=== PATIENT | female | born 1960 | race Caucasian/White ===

== ENCOUNTER 2017-06-12 18:03 | Inpatient (IN) | payer BC ==
[2017-06-12] MEDS ORDERED: LEVOFLOXACIN 750 MG/D5W RTU 750 MG/150 ML RTUPB IV ONE (19:34)
--- NOTE | 2017-06-12 19:34 | ER Document Report ---
ED Respiratory Problem - General Chief Complaint: Shortness Of Breath Stated Complaint: DIFFICUILTY BREATHING Time Seen by Provider: 06/12/17 19:15 Notes: Patient is a 56-year-old female who is referred to the emergency department by her primary care. She states she initially saw them on Thursday for shortness of breath and productive cough. She states she was diagnosed with pneumonia and started on prednisone, Levaquin, albuterol. Patient states that she was not having any improvement in the symptoms at home and was evaluated on Thursday and today and referred to the emergency department today. Patient denies any fevers, chills, nausea, vomiting, abdominal pain. Denies any chest pain. She admits to shortness of breath with improvement with DuoNeb's. Otherwise, she admits to past medical history significant for an AR in July 2016, hyperlipidemia. TRAVEL OUTSIDE OF THE [place] IN LAST 30 DAYS: No - Related Data Allergies/Adverse Reactions: ceftriaxone sodium [From Rocephin] Allergy (Intermediate, Verified 07/31/14 08: 45) welts, itching Home Medications: Current Home Medications Aspirin [Lo-Dose Aspirin EC] 81 mg pe PO DAILY 06/13/17 [History] Atorvastatin Calcium [Lipitor 40 mg Tablet] 40 mg PO QHS 06/13/17 [History] Bupropion HCl [Wellbutrin Sr 150 mg Tablet] 150 mg PO QHS 06/13/17 [History] Clopidogrel Bisulfate [Plavix 75 mg Tablet] 75 mg PO DAILY 06/13/17 [History] Lisinopril [Prinivil 2.5 mg Tablet] 2.5 mg PO DAILY 06/13/17 [History] Metoprolol Succinate 25 mg PO DAILY 06/13/17 [History] Past Medical History - Social History Smoking Status: Current Every Day Smoker Chew tobacco use (# tins/day): No Frequency of alcohol use: None Drug Abuse: None Family History: Reviewed & Not Pertinent - Past Medical History Cardiac Medical History: Denies: Hx Coronary Artery Disease, Hx Heart Attack, Hx Hypertension Pulmonary Medical History: Reports: Hx Asthma, Hx COPD, Hx Pneumonia Denies: Hx Bronchitis Neurological Medical History: Denies: Hx Cerebrovascular Accident, Hx Seizures Musculoskeltal Medical History: Reports Hx Arthritis - RA Past Surgical History: Reports: Hx Hysterectomy - Immunizations Hx Diphtheria, Pertussis, Tetanus Vaccination: Yes Physical Exam - Vital signs Vitals: Temp Pulse Resp BP Pulse Ox 98.4 F 82 18 139/82 H 89 L 06/12/17 18:31 06/12/17 18:31 06/12/17 18:31 06/12/17 18:31 06/12/17 18:31 Course - Re-evaluation Re-evalutation: 06/13/17 20:00 Patient is a 56-year-old female who is hemodynamically stable, no acute distress and afebrile. Concern at this time the patient is failing outpatient treatment for COPD exacerbation versus pneumonia. IV access established, patient has already received IV Solu-Medrol. Will administer IV Levaquin. 06/13/17 21:30 Initial workup does not reveal any evidence of pneumonia on chest x-ray. White blood cell count elevated either related to underlying pneumonia or prednisone taper that she was initiated on. Lactic at 2.5. Has received antibiotics for pneumonia as well as IV fluids. Discussion with admitting hospitalist Dr. Patel recommend CTA and BNP. 06/13/17 22:15 CTA of the chest is negative for any PE or underlying pneumonia. BNP at 1500. Patient still desaturating and tachypneic when ambulating to the bathroom with assistance. Patient will be admitted for COPD exacerbation under Dr. Patel. Patient agrees with plan. - Vital Signs Vital signs: Temp Pulse Resp BP Pulse Ox 97.7 F 93 18 146/72 H 97 06/13/17 02:00 06/13/17 02:48 06/13/17 02:48 06/13/17 02:00 06/13/17 02:48 - Laboratory Result Diagrams: 06/12/17 20:09 06/12/17 20:09 Laboratory results interpreted by me: 06/12/17 06/12/17 06/12/17 20:09 20:09 20:09 WBC 23.2 H RDW 18.8 H Plt Count 478 H Seg Neuts % (Manual) 92 H Lymphocytes % (Manual) 6 L Monocytes % (Manual) 2 L Abs Neuts (Manual) 21.3 H VBG pCO2 34.8 L Sodium 133.3 L Carbon Dioxide 21 L BUN 21 H Glucose 142 H Lactic Acid NT-Pro-B Natriuret Pep 06/12/17 06/12/17 06/12/17 20:09 20:09 22:46 WBC RDW Plt Count Seg Neuts % (Manual) Lymphocytes % (Manual) Monocytes % (Manual) Abs Neuts (Manual) VBG pCO2 Sodium Carbon Dioxide BUN Glucose Lactic Acid 2.6 H 3.0 H NT-Pro-B Natriuret Pep 1590 H - Diagnostic Test Radiology reviewed: Image reviewed, Reports reviewed - EKG Interpretation by Me EKG shows normal: Sinus rhythm Rate: Normal Rhythm: NSR When compared to previous EKG there are: Previous EKG unavailable Discharge - Discharge Clinical Impression: COPD exacerbation Condition: Stable Disposition: ADMITTED INPATIENT Admitting Provider: [facility] Unit Admitted: Telemetry
--- NOTE | 2017-06-12 19:59 | RADIOLOGY REPORT (SQ) ---
EXAM DESCRIPTION: CHEST PA/LAT COMPLETED DATE/TIME: 06/12/2017 7:53 pm REASON FOR STUDY: pneumonia, sob COMPARISON: None. EXAM PARAMETERS: NUMBER OF VIEWS: two views TECHNIQUE: Digital Frontal and Lateral radiographic views of the chest acquired. RADIATION DOSE: NA LIMITATIONS: none FINDINGS: LUNGS AND PLEURA: No opacities, masses or pneumothorax. No pleural effusion. MEDIASTINUM AND HILAR STRUCTURES: No masses or contour abnormalities. HEART AND VASCULAR STRUCTURES: Heart normal size. No evidence for failure. BONES: No acute findings. HARDWARE: None in the chest. OTHER: No other significant finding. IMPRESSION: NO SIGNIFICANT RADIOGRAPHIC FINDING IN THE CHEST. TECHNICAL DOCUMENTATION: JOB ID: [id number] All Rights Reserved
[2017-06-12 20:38] LABS: VENOUS BLOOD BASE EXCESS -2.2 mmol/L; VENOUS BLOOD HCO3 21.7 mmol/L (20-32); VENOUS BLOOD PCO2 34.8 mmHg (35-63); VENOUS BLOOD PH 7.41 (7.30-7.42)
[2017-06-12 20:41] LABS: APPEARANCE,URINE CLEAR; BILIRUBIN,URINE NEGATIVE (NEGATIVE); GLUCOSE, URINE NEGATIVE (NEGATIVE); KETONES,URINE NEGATIVE (NEGATIVE); LEUKOCYTE ESTERASE,URINE NEGATIVE (NEGATIVE); NITRITE,URINE NEGATIVE (NEGATIVE); PROTEIN,URINE NEGATIVE (NEGATIVE); URINE SPECIFIC GRAVITY 1.011; UROBILINOGEN,URINE NEGATIVE mg/dL (<2.0)
[2017-06-12 20:42] LABS: HEMATOCRIT 42.9 % (36.0-47.0); HEMOGLOBIN 14.4 g/dL (12.0-15.5); HGB HCT DIFFERENCE 0.3; MEAN CORPUSCULAR HEMOGLOBIN 28.8 pg (27.0-33.4); MEAN CORPUSCULAR HGB CONC 33.5 g/dL (32.0-36.0); MEAN CORPUSCULAR VOLUME 86 fl (80-97); RED CELL DISTRIBUTION WIDTH 18.8 % (11.5-14.0); WHITE BLOOD COUNT 23.2 10^3/uL (4.0-10.5)
[2017-06-12 20:58] LABS: ALANINE AMINOTRANSFERASE 24 U/L (9-52); ALBUMIN 4.1 g/dL (3.5-5.0); ALKALINE PHOSPHATASE 68 U/L (38-126); ANION GAP 12 (5-19); ASPARTATE AMINO TRANSFERASE 26 U/L (14-36); BILIRUBIN,DIRECT 0.4 mg/dL (0.0-0.4); BILIRUBIN,TOTAL 0.8 mg/dL (0.2-1.3); BLOOD UREA NITROGEN 21 mg/dL (7-20); CALCIUM 9.1 mg/dL (8.4-10.2); CARBON DIOXIDE 21 mmol/L (22-30); CHLORIDE 100 mmol/L (98-107); CREATININE RESULT 0.74 mg/dL (0.52-1.25); GLUCOSE 142 mg/dL (75-110); LIPASE 69.2 U/L (23-300); MAGNESIUM 2.1 mg/dL (1.6-2.3); POTASSIUM 4.8 mmol/L (3.6-5.0); SODIUM 133.3 mmol/L (137-145); TOTAL PROTEIN 7.1 g/dL (6.3-8.2)
[2017-06-12 21:05] LABS: BASOPHILS % (MANUAL) 0 % (0-2); EOSINOPHILS % (MANUAL) 0 % (0-6); LYMPHOCYTES % (MANUAL) 6 % (13-45); TOTAL CELLS COUNTED 100
[2017-06-12] MEDS ORDERED: NORMAL SALINE 1000 ML 2,000 ML IV PRN (21:08)
[2017-06-12 21:09] LABS: ANISOCYTOSIS 1+; OVALOCYTES SLIGHT; POIKILOCYTOSIS SLIGHT; TOXIC GRANULATION SLIGHT
[2017-06-12] MEDS ORDERED: IPRATROPIUM/ALBUTEROL 0.5-2.5 MG/3 ML AMPUL NEB ONE ×2 (21:28→21:33)
--- NOTE | 2017-06-12 22:57 | RADIOLOGY REPORT (SQ) ---
EXAM DESCRIPTION: CTA CHEST COMPLETED DATE/TIME: 06/12/2017 10:43 pm REASON FOR STUDY: shortness of breath COMPARISON: None. TECHNIQUE: CT scan of the chest performed using helical scanning technique with dynamic intravenous contrast injection. Images reviewed with lung, soft tissue and bone windows. Reconstructed coronal and sagittal MPR images reviewed. Additional 3 dimensional post-processing performed to develop Maximal Intensity Projection images (MN P). All images stored on PACS. All CT scanners at this facility use dose modulation, iterative reconstruction, and/or weight based d osing when appropriate to reduce radiation dose to as low as reasonably achievable (ALARA). [facility]: Dose Right [facility]: CareDose [facility]: Dose Right [facility]: Teradose 4D [facility]: [employer] CONTRAST TYPE AND DOSE: contrast/concentration: Isovue 370.00 mg/ml; Total Contrast Delivered: 69.0 ml; Total Saline Delivered: 109.0 ml Contrast bolus optimized for the pulmonary arteries. Not diagnostic for the aorta. RENAL FUNCTION: GFR > 60. RADIATION DOSE: Up-to-date CT equipment and radiation dose reduction techniques were employed. CTDIv ol: 13.2 - 26.4 mGy. DLP: 990 mGy-cm. . LIMITATIONS: None. FINDINGS: LUNGS AND PLEURA: No masses, infiltrates, pneumothorax. No pleural effusions, calcificati ons. AORTA AND GREAT VESSELS: No aneurysm. Contrast bolus not optimized for the aorta. HEART: No pericardial effusion. No significant coronary artery calcifications. PULMONARY ARTERIES: No emboli visualized in the main pulmonary arteries or the segmental branches. HILAR AND MEDIASTINAL STRUCTURES: No identified masses or abnormal nodes. HARDWARE: None in the chest. UPPER ABDOMEN: No significant findings. Limited exam. THYROID AND OTHER SOFT TISSUES: No masses. No adenopathy. BONES: No acute or significant finding. 3D MIPS: Confirm above findings. OTHER: No other significant finding. IMPRESSION: NORMAL CTA OF THE CHEST. NO PULMONARY EMBOLI. COMMENT: Quality ID # [id number]: Final reports with documentation of one or more dose reduction techniques (e.g., Automated exposure control, adjustment of the mA and/or kV according to patient size, use of iterative reconstruction technique) TECHNICAL DOCUMENTATION: JOB ID: [id number]- All Rights Reserved
[2017-06-12] MEDS ORDERED: FUROSEMIDE INJ/PF 40 MG/4 ML SDV IV ONE (23:34)
[2017-06-13] MEDS ORDERED: ACETAMINOPHEN 325 MG TABLET PO PRN (00:04)
[2017-06-13] MEDS ORDERED: NICOTINE 7 MG/24 HR PATCH.TD24 TD ONE (00:07)
--- NOTE | 2017-06-13 00:13 | EKG REPORT ---
SEVERITY:- ABNORMAL ECG - SINUS RHYTHM NONSPECIFIC INTRAVENTRICULAR CONDUCTION DELAY INFERIOR INFARCT, OLD CONSIDER ANTERIOR INFARCT : Confirmed by: Rosemary Leggett 13-Jun-2017 00:12:39
[2017-06-13] MEDS: FAMOTIDINE 20 MG TABLET PO SCH ×2 (01:00→22:30)
[2017-06-13] MEDS: IPRATROPIUM/ALBUTEROL 0.5-2.5 MG/3 ML AMPUL NEB PRN ×2 (01:02→02:48)
[2017-06-13] MEDS ORDERED: FLUTICASONE NASAL SPRAY 50 MCG/SPRY 120 SPRAY/16 GM ONE (03:18)
[2017-06-13] MEDS ORDERED: CHLORPHENIRAMINE MALEATE 4 MG TABLET ONE (03:18)
[2017-06-13] MEDS ORDERED: DILTIAZEM HCL 60 MG TABLET PO ONE (03:30)
[2017-06-13] MEDS: HEPARIN SOD (PORCINE) 5,000 UNIT/ML 1 ML SYRINGE SUBCUT SCH ×3 (05:34→22:29)
--- NOTE | 2017-06-13 06:17 | PDOC H&P ---
History of Present Illness Admission Date/PCP: 06/13/17 00:04 Patient complains of: Shortness of breath and cough History of Present Illness: URIAH CALVERT is a 56 year old female with past medical history of rheumatoid arthritis, COPD, seasonal allergies and tobacco dependence. Patient had been in her usual state of health until approximately 48 hours prior to presentation with exceptional shortness of breath associated with cough, runny nose and subjective fever. She denies sore throat, chest pain palpitations nausea or vomiting. She is recently diagnosed with a flare of COPD and prescribed prednisone. In the emergency room she has an unremarkable workup with exception to tachypnea and leukocytosis. She is referred to the hospitalist for evaluation. Past Medical History Cardiac Medical History: Denies: Coronary Artery Disease, Myocardial Infarction, Hypertension Pulmonary Medical History: Reports: Asthma, Chronic Obstructive Pulmonary Disease (COPD), Pneumonia Denies: Bronchitis Neurological Medical History: Denies: Seizures Musculoskeltal Medical History: Reports: Arthritis - RA Psychiatric Medical History: Reports: Tobacco Dependency Denies: Depression Hematology: Denies: Anemia Past Surgical History Past Surgical History: Reports: Hysterectomy Social History Information Source: Patient Smoking Status: Current Every Day Smoker Cigarettes Packs Per Day: 0.5 Number of Years Smokin Last Time Smoked: 06/12/2017 Frequency of Alcohol Use: None Hx Recreational Drug Use: No - denies Drugs: None Hx Prescription Drug Abuse: No - Advance Directive Resuscitation Status: Full Code Family History Family History: COPD Parental Family History Reviewed: Yes Children Family History Reviewed: Yes Sibling(s) Family History Reviewed.: Yes Medication/Allergy Home Medications: Cetirizine HCl [Zyrtec 10 mg Tablet] 10 mg PO DAILY 07/28/14 Estrogens,Conjugated [Premarin 1.25 mg Tablet] 1.25 mg PO DAILY 07/28/14 Methotrexate Sodium [Methotrexate] 2.5 mg PO ASDIR 07/28/14 Montelukast Sodium [Singulair 10 mg Tablet] 10 mg PO DAILY 07/28/14 Aspirin [Lo-Dose Aspirin EC] 81 mg pe PO DAILY 06/13/17 Atorvastatin Calcium [Lipitor 40 mg Tablet] 40 mg PO QHS 06/13/17 Bupropion HCl [Wellbutrin Sr 150 mg Tablet] 150 mg PO QHS 06/13/17 Clopidogrel Bisulfate [Plavix 75 mg Tablet] 75 mg PO DAILY 06/13/17 Lisinopril [Prinivil 2.5 mg Tablet] 2.5 mg PO DAILY 06/13/17 Metoprolol Succinate 25 mg PO DAILY 06/13/17 Allergies/Adverse Reactions: ceftriaxone sodium [From Rocephin] Allergy (Intermediate, Verified 07/31/14 08: 45) welts, itching Review of Systems Constitutional: PRESENT: chills, fatigue, fever(s) Eyes: ABSENT: visual disturbances Ears: ABSENT: hearing changes Nose, Mouth, and Throat: PRESENT: other - Rhinorrhea Physical Exam Vital Signs: Temp Pulse Resp BP Pulse Ox 97.7 F 93 18 146/72 H 97 06/13/17 02:00 06/13/17 02:48 06/13/17 02:48 06/13/17 02:00 06/13/17 02:48 Intake & Output 06/11/17 06/12/17 06/13/17 11:59 11:59 11:59 Weight 85.9 kg General appearance: PRESENT: cooperative, mild distress Head exam: PRESENT: atraumatic, normocephalic Eye exam: PRESENT: conjunctiva pink, EOMI, PERRLA. ABSENT: scleral icterus Ear exam: PRESENT: normal external ear exam Mouth exam: PRESENT: moist, tongue midline Neck exam: ABSENT: carotid bruit, JVD, lymphadenopathy, thyromegaly Respiratory exam: PRESENT: accessory muscle use, crackles, prolonged expiratory phas, rales, symmetrical, tachypnea. ABSENT: chest wall tenderness, rhonchi, stridor Cardiovascular exam: PRESENT: RRR. ABSENT: diastolic murmur, rubs, systolic murmur Pulses: PRESENT: normal dorsalis pedis pul Vascular exam: PRESENT: normal capillary refill GI/Abdominal exam: PRESENT: normal bowel sounds, soft. ABSENT: distended, guarding, mass, organolmegaly, rebound, tenderness Rectal exam: PRESENT: deferred Extremities exam: PRESENT: full ROM. ABSENT: calf tenderness, clubbing, pedal edema Neurological exam: PRESENT: alert, awake, oriented to person, oriented to place , oriented to time, oriented to situation, CN II-XII grossly intact. ABSENT: motor sensory deficit Psychiatric exam: PRESENT: appropriate affect, normal mood. ABSENT: homicidal ideation, suicidal ideation Skin exam: PRESENT: dry, intact, warm. ABSENT: cyanosis, rash Results Impressions: Chest X-Ray 06/12/17 19:32 IMPRESSION: NO SIGNIFICANT RADIOGRAPHIC FINDING IN THE CHEST. Chest/Abdomen CTA 06/12/17 21:56 IMPRESSION: NORMAL CTA OF THE CHEST. NO PULMONARY EMBOLI. Assessment & Plan - Diagnosis (1) COPD exacerbation Is this a current diagnosis for this admission?: Yes Plan: Observation on a monitored bed with supplemental oxygen, empiric antibiotics, flutter valve, albuterol and Atrovent. (2) Allergic sinusitis Is this a current diagnosis for this admission?: Yes Plan: Symptomatic management with chlorpheniramine and Flonase (3) Bronchitis Is this a current diagnosis for this admission?: Yes Plan: Albuterol and Atrovent, flutter valve, empiric antibiotics (4) Rheumatoid arthritis Is this a current diagnosis for this admission?: Yes Plan: Continue methotrexate and prednisone. - Time Time Spent: 30 to 50 Minutes
[2017-06-13] MEDS: IPRATROPIUM/ALBUTEROL 0.5-2.5 MG/3 ML AMPUL NEB SCH ×3 (08:12→19:49)
[2017-06-13] MEDS ORDERED: PREDNISONE 20 MG TABLET PO SCH (10:00)
[2017-06-13] MEDS: FLUTICASONE NASAL SPRAY 50 MCG/SPRY 120 SPRAY/16 GM NASL SCH (10:49)
[2017-06-13] MEDS: CHLORPHENIRAMINE MALEATE 4 MG TABLET PO SCH (10:52)
[2017-06-13] MEDS: METHYLPREDNISOLONE INJ 40 MG/1 ML SDV IV SCH ×2 (13:55→22:29)
[2017-06-13] MEDS ORDERED: CETIRIZINE 10 MG TABLET PO ONE (14:30)
[2017-06-13] MEDS ORDERED: MONTELUKAST SODIUM 10 MG TABLET PO ONE (14:30)
[2017-06-13] MEDS ORDERED: CLOPIDOGREL BISULFATE 75 MG TABLET PO ONE (14:30)
[2017-06-13] MEDS ORDERED: METOPROLOL SUCCINATE 25 MG TAB.SR.24H PO ONE (14:30)
--- NOTE | 2017-06-13 14:45 | PDOC PROGRESS REPORT ---
Subjective Progress Note for:: 06/13/17 Subjective:: The patient is a 56-year-old female who has known coronary artery disease. She suffered a myocardial infarction in July 2016 and underwent cardiac catheterization and is status post stent placement. The patient took ill approximately 1 week prior to admission. She was seen by her primary care doctor. She was diagnosed with pneumonia and placed on Levaquin. She continued to do poorly and came into the emergency department last evening. In the emergency department she was given Lasix with some relief. She was diagnosed with COPD with exacerbation and placed on corticosteroids as well as Levaquin and bronchodilators. Her allergy regimen was continued. The patient has not been diagnosed with COPD. Her [employer] ADMINISTRATOR doctor told her at one point that she may have some mild asthma. She does have a long history of tobacco dependency. She felt better after steroids. She has no orthopnea and PND. Physical Exam Vital Signs: Temp Pulse Resp BP Pulse Ox 97.7 F 90 16 145/65 H 91 L 06/13/17 11:26 06/13/17 13:56 06/13/17 13:56 06/13/17 11:26 06/13/17 13:56 Intake & Output 06/12/17 06/13/17 06/14/17 06:59 06:59 06:59 Weight 85.9 kg Additional comments: The patient was sitting up in bed. She has oxygen on. She is fanning herself but does not appear to be in any distress. She is able to speak in full sentences. Her lungs demonstrate diffuse wheezing but no rales. Her cardiac exam is regular. I do not appreciate any murmurs, gallops or rubs. The abdomen is benign. The lower extremities are without any significant edema. Results Laboratory Results: 06/13/17 07:20 Sputum Gram Stain - Final 06/13/17 07:20 Sputum Sputum Culture - Final Impressions: Chest X-Ray 06/12/17 19:32 IMPRESSION: NO SIGNIFICANT RADIOGRAPHIC FINDING IN THE CHEST. Chest/Abdomen CTA 06/12/17 21:56 IMPRESSION: NORMAL CTA OF THE CHEST. NO PULMONARY EMBOLI. Assessment & Plan - Diagnosis (1) Coronary artery disease Qualifiers: Coronary Disease-Associated Artery/Lesion type: [place] artery Associated angina: without angina Is this a current diagnosis for this admission?: Yes Plan: The patient presumably had a drug-eluting stent placed last July. She needs to remain on dual antiplatelet therapy. We will continue her other cardiac medications. It is unclear if the patient is truly having a COPD exacerbation or congestive heart failure exacerbation or both. She does not have rails. She did not have any evidence of congestive heart failure on the CT angiogram and I am leaning toward COPD with exacerbation. Her pro BNP was only mildly elevated. Admission troponin was negative. (2) Allergic sinusitis Is this a current diagnosis for this admission?: Yes Plan: Continue therapy with antihistamines. (3) Bronchitis Is this a current diagnosis for this admission?: Yes Plan: I would only recommend maximal therapy with an antibiotic for 7 days. (4) COPD exacerbation Is this a current diagnosis for this admission?: Yes Plan: Patient is only on low-dose oral steroids. I have started IV steroids. (5) Rheumatoid arthritis Is this a current diagnosis for this admission?: Yes Plan: I do not see evidence for methotrexate toxicity in this patient.
[2017-06-13] MEDS ORDERED: LISINOPRIL 5 MG TABLET PO ONE (15:00)
[2017-06-13] MEDS ORDERED: ASPIRIN 81 MG TABLET, ENT COATED PO ONE (15:00)
[2017-06-13] MEDS: BUPROPION HCL 75 MG TABLET PO SCH (17:14)
[2017-06-13] MEDS ORDERED: LEVOFLOXACIN 750 MG/D5W RTU 750 MG/150 ML RTUPB IV SCH (22:00)
[2017-06-13] MEDS ORDERED: (PENDING PHARMACY ID) (Bupropion Hcl [Wellbutrin Sr 150 Mg Tablet] 150 MG) PO SCH (22:00)
[2017-06-13] MEDS: ASPIRIN 81 MG TABLET, ENT COATED PO SCH (22:29)
[2017-06-13] MEDS: TEMAZEPAM 15 MG CAPSULE PO PRN (22:29)
[2017-06-13] MEDS: MONTELUKAST SODIUM 10 MG TABLET PO SCH (22:30)
[2017-06-13] MEDS: CETIRIZINE 10 MG TABLET PO SCH (22:31)
[2017-06-13] MEDS: ATORVASTATIN CALCIUM 40 MG TABLET PO SCH (22:31)
[2017-06-13] MEDS: CLOPIDOGREL BISULFATE 75 MG TABLET PO SCH (22:34)
[2017-06-14 05:36] LABS: HEMOGLOBIN 13.5 g/dL (12.0-15.5); HGB HCT DIFFERENCE 0.5; MEAN CORPUSCULAR HEMOGLOBIN 28.9 pg (27.0-33.4); MEAN CORPUSCULAR HGB CONC 33.7 g/dL (32.0-36.0); MEAN CORPUSCULAR VOLUME 86 fl (80-97); RED BLOOD COUNT 4.67 10^6/uL (3.72-5.28); RED CELL DISTRIBUTION WIDTH 18.5 % (11.5-14.0); WHITE BLOOD COUNT 20.7 10^3/uL (4.0-10.5)
[2017-06-14 05:45] LABS: ANION GAP 11 (5-19); BLOOD UREA NITROGEN 19 mg/dL (7-20); CALCIUM 9.5 mg/dL (8.4-10.2); CARBON DIOXIDE 23 mmol/L (22-30); CHLORIDE 99 mmol/L (98-107); CREATININE RESULT 0.64 mg/dL (0.52-1.25); GLUCOSE 142 mg/dL (75-110); POTASSIUM 5.2 mmol/L (3.6-5.0); SODIUM 132.9 mmol/L (137-145)
[2017-06-14 06:14] LABS: BAND NEUTROPHILS % (MANUAL) 2 % (3-5); BASOPHILS % (MANUAL) 0 % (0-2); EOSINOPHILS % (MANUAL) 0 % (0-6); LYMPHOCYTES % (MANUAL) 2 % (13-45); TOTAL CELLS COUNTED 100
[2017-06-14 06:15] LABS: TOXIC VACUOLATION PRESENT
[2017-06-14 06:16] LABS: ANISOCYTOSIS 2+
[2017-06-14 06:17] LABS: POLYCHROMASIA SLIGHT
[2017-06-14 06:18] LABS: BURR CELLS SLIGHT; OVALOCYTES SLIGHT; POIKILOCYTOSIS SLIGHT; TARGET CELLS SLIGHT
[2017-06-14 06:19] LABS: PLATELET CLUMPS PRESENT
[2017-06-14] MEDS: METHYLPREDNISOLONE INJ 40 MG/1 ML SDV IV SCH ×3 (06:45→21:20)
[2017-06-14] MEDS: HEPARIN SOD (PORCINE) 5,000 UNIT/ML 1 ML SYRINGE SUBCUT SCH ×3 (06:46→21:20)
[2017-06-14] MEDS: IPRATROPIUM/ALBUTEROL 0.5-2.5 MG/3 ML AMPUL NEB SCH ×3 (08:25→20:12)
[2017-06-14] MEDS ORDERED: ESTROGENS,CONJUGATED 1.25 MG TABLET PO SCH (10:00)
[2017-06-14] MEDS ORDERED: CETIRIZINE 10 MG TABLET PO SCH (10:00)
[2017-06-14] MEDS: FAMOTIDINE 20 MG TABLET PO SCH ×2 (10:00→21:20)
[2017-06-14] MEDS ORDERED: CLOPIDOGREL BISULFATE 75 MG TABLET PO SCH (10:00)
[2017-06-14] MEDS ORDERED: (PENDING PHARMACY ID) (Lisinopril [Prinivil 2.5 Mg Tablet] 2.5 MG) PO SCH (10:00)
[2017-06-14] MEDS ORDERED: MONTELUKAST SODIUM 10 MG TABLET PO SCH (10:00)
[2017-06-14] MEDS ORDERED: ASPIRIN 81 MG TABLET, ENT COATED PO SCH (10:00)
[2017-06-14] MEDS: LISINOPRIL 5 MG TABLET PO SCH (10:00)
[2017-06-14] MEDS: FLUTICASONE NASAL SPRAY 50 MCG/SPRY 120 SPRAY/16 GM NASL SCH (10:00)
[2017-06-14] MEDS: CHLORPHENIRAMINE MALEATE 4 MG TABLET PO SCH (10:01)
[2017-06-14] MEDS: METOPROLOL SUCCINATE 25 MG TAB.SR.24H PO SCH (10:01)
[2017-06-14] MEDS: NICOTINE 14 MG/24 HR PATCH.TD24 TD SCH (10:02)
[2017-06-14] MEDS: BUPROPION HCL 75 MG TABLET PO SCH ×2 (10:02→17:27)
[2017-06-14] MEDS ORDERED: INFLUENZA ADLT QUAD (36MOS+) 2017-18 VAC 0.5 ML SYR IM PRN (10:37)
--- NOTE | 2017-06-14 11:03 | PDOC PROGRESS REPORT ---
Subjective Progress Note for:: 06/14/17 Subjective:: The patient is a 56-year-old female who has known coronary artery disease. She suffered a myocardial infarction in July 2016 and underwent cardiac catheterization and is status post stent placement. The patient took ill approximately 1 week prior to admission. She was seen by her primary care doctor. She was diagnosed with pneumonia and placed on Levaquin. She continued to do poorly and came into the emergency department. In the emergency department she was given Lasix with some relief. She was diagnosed with COPD with exacerbation and placed on corticosteroids as well as Levaquin and bronchodilators. Her allergy regimen was continued. The patient has not been diagnosed with COPD. Her ANTI TANK MISSILEMAN doctor told her at one point that she may have some mild asthma. She does have a long history of tobacco dependency. She felt better after steroids. She has no orthopnea and PND. She has not been complaining of weight gain, increased abdominal girth or lower extremity edema. When she had her heart attack in July 2016 she did have an echocardiogram at [facility]. She was told that she did only minimal damage to her heart. Physical Exam Vital Signs: Temp Pulse Resp BP Pulse Ox 97.6 F 100 20 126/62 H 92 06/14/17 09:06 06/14/17 09:06 06/14/17 09:06 06/14/17 09:06 06/14/17 09:06 Intake & Output 06/13/17 06/14/17 06/15/17 06:59 06:59 06:59 Intake Total 1200 Output Total 300 Balance 900 Weight 85.9 kg 85.9 kg Additional comments: Overall, the patient appears to be improved today. She appears to be in better spirits and less anxious. She does state that she is feeling better. Her cognition is normal. Her facial appearance is normal. She does have supplemental oxygen in place today. Her lungs are now clear. She had diffuse wheezing yesterday and her lungs are now clear. Her cardiac exam is regular without murmurs, gallops or rubs. The abdomen is soft, flat with normal active bowel sounds. She does not have guarding or rebound noted and there are no hernias or masses noted. The lower extremities are warm to touch without any pitting edema. The skin is warm dry and intact without lesions or rashes. Results Laboratory Results: 06/14/17 04:40 06/14/17 04:40 06/14/17 06/14/17 04:40 04:40 WBC 20.7 H RBC 4.67 Hgb 13.5 Hct 40.0 MCV 86 MCH 28.9 MCHC 33.7 RDW 18.5 H Plt Count 353 Seg Neutrophils % Not Reportable Lymphocytes % Not Reportable Monocytes % Not Reportable Eosinophils % Not Reportable Basophils % Not Reportable Absolute Neutrophils Not Reportable Absolute Lymphocytes Not Reportable Absolute Monocytes Not Reportable Absolute Eosinophils Not Reportable Absolute Basophils Not Reportable Sodium 132.9 L Potassium 5.2 H Chloride 99 Carbon Dioxide 23 Anion Gap 11 BUN 19 Creatinine 0.64 Est GFR ( Amer) > 60 Est GFR (Non-Af Amer) > 60 Glucose 142 H Calcium 9.5 06/13/17 07:20 Sputum Gram Stain - Final 06/13/17 07:20 Sputum Sputum Culture - Final Impressions: Chest X-Ray 06/12/17 19:32 IMPRESSION: NO SIGNIFICANT RADIOGRAPHIC FINDING IN THE CHEST. Chest/Abdomen CTA 06/12/17 21:56 IMPRESSION: NORMAL CTA OF THE CHEST. NO PULMONARY EMBOLI. Assessment & Plan - Diagnosis (1) Coronary artery disease Qualifiers: Coronary Disease-Associated Artery/Lesion type: [place] artery Associated angina: without angina Is this a current diagnosis for this admission?: Yes Plan: The patient presumably had a drug-eluting stent placed last July. She needs to remain on dual antiplatelet therapy. We will continue her other cardiac medications. It is unclear if the patient is truly having a COPD exacerbation or congestive heart failure exacerbation or both. She does not have rails. She did not have any evidence of congestive heart failure on the CT angiogram and I am leaning toward COPD with exacerbation. Her pro BNP was only mildly elevated. Admission troponin was negative. ECHO testing is ordered. (2) Allergic sinusitis Is this a current diagnosis for this admission?: Yes Plan: Continue therapy with antihistamines. (3) Bronchitis Is this a current diagnosis for this admission?: Yes Plan: I would only recommend maximal therapy with an antibiotic for 7 days. (4) COPD exacerbation Is this a current diagnosis for this admission?: Yes Plan: Patient is only on low-dose oral steroids. I have started IV steroids. Continue therapy with bronchodilators. (5) Rheumatoid arthritis Is this a current diagnosis for this admission?: Yes Plan: I do not see evidence for methotrexate toxicity in this patient. Patient informed me today that her collection manager started steroids shortly before admission due to swelling and pain in her hands. (6) Tobacco dependency Is this a current diagnosis for this admission?: Yes Plan: A nicotine patch was started. Total tobacco cessation was reinforced. - Time Time Spent with patient: 25-34 minutes - Inpatient Certification Medical Necessity: Failure to Improve With Outpatient Therapy, Risk of Complication if Not Cared For in Hospital
--- NOTE | 2017-06-14 11:06 | Progress Note ---
Provider Note Provider Note: Chemistry panel today showed slightly elevated potassium. I feel that this is unlikely from the low-dose lisinopril. I will repeat labs in the morning.
[2017-06-14] MEDS: CETIRIZINE 10 MG TABLET PO SCH (21:19)
[2017-06-14] MEDS: ATORVASTATIN CALCIUM 40 MG TABLET PO SCH (21:19)
[2017-06-14] MEDS: ASPIRIN 81 MG TABLET, ENT COATED PO SCH (21:19)
[2017-06-14] MEDS: CLOPIDOGREL BISULFATE 75 MG TABLET PO SCH (21:20)
[2017-06-14] MEDS: MONTELUKAST SODIUM 10 MG TABLET PO SCH (21:20)
[2017-06-14] MEDS: TEMAZEPAM 15 MG CAPSULE PO PRN (22:37)
[2017-06-15] MEDS: IPRATROPIUM/ALBUTEROL 0.5-2.5 MG/3 ML AMPUL NEB PRN (00:12)
[2017-06-15] MEDS: HEPARIN SOD (PORCINE) 5,000 UNIT/ML 1 ML SYRINGE SUBCUT SCH ×3 (05:29→21:20)
[2017-06-15] MEDS: METHYLPREDNISOLONE INJ 40 MG/1 ML SDV IV SCH ×2 (05:29→15:40)
[2017-06-15 05:51] LABS: ANION GAP 9 (5-19); BLOOD UREA NITROGEN 21 mg/dL (7-20); CALCIUM 9.9 mg/dL (8.4-10.2); CARBON DIOXIDE 23 mmol/L (22-30); CHLORIDE 102 mmol/L (98-107); CREATININE RESULT 0.66 mg/dL (0.52-1.25); GLUCOSE 146 mg/dL (75-110); POTASSIUM 5.2 mmol/L (3.6-5.0); SODIUM 134.1 mmol/L (137-145)
[2017-06-15] MEDS: IPRATROPIUM/ALBUTEROL 0.5-2.5 MG/3 ML AMPUL NEB SCH ×3 (08:21→20:05)
[2017-06-15] MEDS: FLUTICASONE NASAL SPRAY 50 MCG/SPRY 120 SPRAY/16 GM NASL SCH (09:58)
[2017-06-15] MEDS: NICOTINE 14 MG/24 HR PATCH.TD24 TD SCH (09:58)
[2017-06-15] MEDS: LISINOPRIL 5 MG TABLET PO SCH (10:00)
[2017-06-15] MEDS: METOPROLOL SUCCINATE 25 MG TAB.SR.24H PO SCH (10:00)
[2017-06-15] MEDS: FAMOTIDINE 20 MG TABLET PO SCH ×2 (10:00→21:21)
[2017-06-15] MEDS: CHLORPHENIRAMINE MALEATE 4 MG TABLET PO SCH (10:01)
[2017-06-15] MEDS: BUPROPION HCL 75 MG TABLET PO SCH ×2 (10:15→17:33)
--- NOTE | 2017-06-15 16:31 | XCELERA REPORT ---
[address] [address] Transthoracic Echocardiogram Report Name: URIAH CALVERT Age: 56 yrs Gender: Female : 1960 Patient Status: Inpatient Patient Location: [address] [place] [address] Study Date: 06/15/2017 02:27 PM Height: 63 in Weight: 189 lb BSA: 1.9 m2 Procedure: A complete two-dimensional transthoracic echocardiogram was performed (2D, M-mode, spectral and color flow Doppler). The study was technically difficult with many images being suboptimal in quality. Reason For Study: Congestive heart failure Ordering Physician: TAVO BORGES Performed By: Pankaj Sylvester Interpretation Summary The left ventricular ejection fraction is within normal limits. There is borderline concentric left ventricular hypertrophy. The left ventricle is grossly normal size. Doppler measurements suggest pseudonormalized left ventricular relaxation, which is associated with grade II/IV or mild to moderate diastolic dysfunction Wall motion cannot be accurately commented on, but no definite regional wall motion abnormalities noted. The right ventricular systolic function is normal. The left atrium is mildly dilated. The right atrium is normal in size There is a mild amount of mitral regurgitation There is no mitral valve stenosis. There is a trace amount of aortic regurgitation There is no aortic valve stenosis There is a trace or physiologic amount of tricuspid regurgitation Tricuspid regurgitation jet envelope not well defined to measure RV systolic pressure accurately. There is no pericardial effusion. MMode/2D Measurements & Calculations RVDd: 2.0 cm LVIDd: 5.6 cm FS: 21.3 % Ao root diam: 3.0 cm IVSd: 0.93 cm LVIDs: 4.4 cm EDV(Teich): 151.9 ml LVPWd: 0.85 cm ESV(Teich): 87.0 ml Ao root area: 7.0 cm2 EF(Teich): 42.7 % Doppler Measurements & Calculations MV E max aimee: MV dec slope: Ao V2 max: LV V1 max P.8 cm/sec 140.6 cm/sec 7.8 mmHg MV A max aimee: 467.7 cm/sec2 Ao max PG: LV V1 max: 141.4 cm/sec MV dec time: 7.9 mmHg 139.9 cm/sec MV E/A: 0.66 0.20 sec PA V2 max: TR max aimee: RAP systole: 137.1 cm/sec 256.1 cm/sec 5.0 mmHg PA max P.5 mmHgTR max P.2 mmHg RVSP(TR): 31.2 mmHg Left Ventricle The left ventricle is grossly normal size. There is borderline concentric left ventricular hypertrophy. The left ventricular ejection fraction is within normal limits. Doppler measurements suggest pseudonormalized left ventricular relaxation, which is associated with grade II/IV or mild to moderate diastolic dysfunction. Wall motion cannot be accurately commented on, but no definite regional wall motion abnormalities noted. Right Ventricle The right ventricle is grossly normal size. There is normal right ventricular wall thickness. The right ventricular systolic function is normal. Atria The right atrium is normal in size. The left atrium is mildly dilated. Interarterial septum not well visualized and not well dopplered. Cannot comment on ASD/PFO presence. Mitral Valve There is mild mitral leaflet calcification. There is moderate mitral annular calcification. There is no mitral valve stenosis. There is a mild amount of mitral regurgitation. Aortic Valve The aortic valve opens well. The aortic valve is mildly calcified. There is no aortic valve stenosis. There is a trace amount of aortic regurgitation. Tricuspid Valve The tricuspid valve is not well visualized, but is grossly normal. There is no tricuspid stenosis. There is a trace or physiologic amount of tricuspid regurgitation. Tricuspid regurgitation jet envelope not well defined to measure RV systolic pressure accurately. Pulmonic Valve The pulmonic valve is not well visualized. Great Vessels The aortic root is not well visualized but is probably normal size. The inferior vena cava appeared normal. Effusions There is no pericardial effusion. : TAVO BORGES > Rosemary Leggett
--- NOTE | 2017-06-15 17:22 | PDOC DISCHARGE SUMMARY ---
General - Admit/Disc Date/PCP Admission Date/Primary Care Provider: 06/14/17 13:44 Discharge Date: 06/16/17 - Discharge Diagnosis (1) Coronary artery disease Is this a current diagnosis for this admission?: Yes (2) Allergic sinusitis Is this a current diagnosis for this admission?: Yes (3) Bronchitis Is this a current diagnosis for this admission?: Yes (4) COPD exacerbation Is this a current diagnosis for this admission?: Yes (5) Rheumatoid arthritis Is this a current diagnosis for this admission?: Yes (6) Tobacco dependency Is this a current diagnosis for this admission?: Yes (7) Hyperkalemia Is this a current diagnosis for this admission?: Yes - Additional Information Resuscitation Status: Full Code Discharge Diet: Cardiac Discharge Activity: Activity As Tolerated, Slowly Increase Activity Home Medications: Cetirizine HCl [Zyrtec 10 mg Tablet] 10 mg PO DAILY 07/28/14 Estrogens,Conjugated [Premarin 1.25 mg Tablet] 1.25 mg PO DAILY 07/28/14 Methotrexate Sodium [Methotrexate] 10 mg PO TU@1000 07/28/14 Montelukast Sodium [Singulair 10 mg Tablet] 10 mg PO DAILY 07/28/14 Aspirin [Lo-Dose Aspirin EC] 81 mg PO DAILY 06/13/17 Atorvastatin Calcium [Lipitor 40 mg Tablet] 40 mg PO QHS 06/13/17 Bupropion HCl [Wellbutrin Sr 150 mg Tablet] 150 mg PO QHS 06/13/17 Clopidogrel Bisulfate [Plavix 75 mg Tablet] 75 mg PO DAILY 06/13/17 Lisinopril [Prinivil 2.5 mg Tablet] 2.5 mg PO DAILY 06/13/17 Methotrexate Sodium [Methotrexate] 10 mg PO WE@1000 06/13/17 Metoprolol Succinate 25 mg PO DAILY 06/13/17 Albuterol Sulfate [Proair HFA] 1 - 2 puff IH Q4 PRN #1 inhaler 06/15/17 Chlorpheniramine Maleate [Chlor-Trimeton 4 mg Tablet] 4 mg PO DAILY tablet 10/31 Nicotine [Nicoderm 14 mg/24 Hr Transdermal Patch] 1 each TD DAILY 14 Days #14 patch.[email or web address] 06/15/17 Prednisone 20 mg PO DAILY 5 Days #5 tablet 06/15/17 History of Present Illness History of Present Illness: URIAH CALVERT is a 56 year old female with past medical history of rheumatoid arthritis, COPD, seasonal allergies and tobacco dependence. Patient had been in her usual state of health until approximately 48 hours prior to presentation with exceptional shortness of breath associated with cough, runny nose and subjective fever. She denies sore throat, chest pain palpitations nausea or vomiting. She is recently diagnosed with a flare of COPD and prescribed prednisone. In the emergency room she has an unremarkable workup with exception to tachypnea and leukocytosis. She is referred to the hospitalist for evaluation. Hospital Course Hospital Course: She was brought into the hospital with severe shortness of breath and cough that did not respond to outpatient therapy with Levaquin. In addition, she had seen her mechanical striper who put her on a short course of oral prednisone for swelling in her fingers. Therefore, she failed outpatient therapy. Initially, it was unclear if the patient was having congestive heart failure exacerbation versus COPD with exacerbation. Her pro BNP slightly elevated. However, her clinical exam was most compatible with COPD with exacerbation. During this hospitalization the patient has been treated with intravenous corticosteroids. She received a total of 7 days worth of Levaquin. Chest imaging did not demonstrate an infiltrate. It is likely that the patient developed acute bacterial tracheobronchitis. She was treated with antibiotics for this etiology and not for pneumonia. The patient did have an echocardiogram on 2016. This demonstrates a preserved ejection fraction. The patient has mild left ventricular concentric hypertrophy. She has grade 2 diastolic dysfunction. She has mild mitral regurgitation and mild aortic regurgitation. During this hospitalization tobacco cessation was reinforced. The patient was continued on all of her routine cardiac medications. Upon discharge the patient will complete another 5 days worth of prednisone 20 mg per day. She will also be prescribed a rescue inhaler. It is recommended that if the patient has multiple COPD exacerbations that she be placed on a controller inhaler. If her symptoms continue to get worse I would also recommend pulmonary function testing. The patient's potassium was noted to be slightly elevated during this hospitalization between 5 and 5.2. While this could be the lisinopril I did not discontinue this since the lisinopril is at such a low dose and the potassium has been stable. I have recommended that the patient have follow-up labs in 1 week. Physical Exam Vital Signs: Temp Pulse Resp BP Pulse Ox 98.3 F 77 16 132/61 H 94 06/15/17 16:10 06/15/17 16:10 06/15/17 16:10 06/15/17 16:10 06/15/17 16:10 Intake & Output 06/14/17 06/15/17 06/16/17 06:59 06:59 06:59 Intake Total 1321 Output Total 700 Balance 621 Weight 84.5 kg Additional comments: Exam is dated 06/15/2017. Patient does appear to be improving. She has some plethora in her cheeks but otherwise her facial appearance is normal. Her lips and mucous membranes are moist. She is able to speak in full sentences. Occasionally, she will continue to have severe coughing fits. She was able to ambulate today. Her lungs now demonstrate no wheezing. She does not have any rales. Her cardiac exam is regular without murmurs, gallops or rubs. The abdomen is soft flat and benign. Bowel sounds are present in all 4 quadrants. The lower extremities do not demonstrate any edema. Other than the redness of the cheeks the skin is warm dry and intact without lesions or rashes. Results Laboratory Results: 06/15/17 05:20 06/15/17 05:20 Sodium 134.1 L Potassium 5.2 H Chloride 102 Carbon Dioxide 23 Anion Gap 9 BUN 21 H Creatinine 0.66 Est GFR ( Amer) > 60 Est GFR (Non-Af Amer) > 60 Glucose 146 H Calcium 9.9 Impressions: Chest X-Ray 06/12/17 19:32 IMPRESSION: NO SIGNIFICANT RADIOGRAPHIC FINDING IN THE CHEST. Chest/Abdomen CTA 06/12/17 21:56 IMPRESSION: NORMAL CTA OF THE CHEST. NO PULMONARY EMBOLI. Qualifiers PATEINT BEING DISCHARGED WITH ANY OF THE FOLLOWING DIAGNOSIS?: No Plan Discharge Plan: 1. Follow-up with primary grounds caretaker, Dr. Guerra, in 7-10 days. It is recommended that a chemistry panel be performed at this visit to recheck potassium level which is been at the upper limits of normal to slightly elevated during this hospitalization. 2. Follow-up with cardiology, Dr. Marie as previously scheduled. Time Spent: Greater than 30 Minutes
[2017-06-15] MEDS: CETIRIZINE 10 MG TABLET PO SCH (21:20)
[2017-06-15] MEDS: ATORVASTATIN CALCIUM 40 MG TABLET PO SCH (21:20)
[2017-06-15] MEDS: ASPIRIN 81 MG TABLET, ENT COATED PO SCH (21:20)
[2017-06-15] MEDS: CLOPIDOGREL BISULFATE 75 MG TABLET PO SCH (21:21)
[2017-06-15] MEDS: MONTELUKAST SODIUM 10 MG TABLET PO SCH (21:21)
[2017-06-15] MEDS ORDERED: ESTROGENS,CONJUGATED 1.25 MG TABLET PO SCH (22:00)
[2017-06-15] MEDS: TEMAZEPAM 15 MG CAPSULE PO PRN (22:35)
[2017-06-16] MEDS: HEPARIN SOD (PORCINE) 5,000 UNIT/ML 1 ML SYRINGE SUBCUT SCH ×2 (05:17→15:15)
[2017-06-16] MEDS: IPRATROPIUM/ALBUTEROL 0.5-2.5 MG/3 ML AMPUL NEB SCH ×2 (08:10→14:36)
[2017-06-16] MEDS ORDERED: PREDNISONE 20 MG TABLET PO SCH (10:00)
[2017-06-16] MEDS ORDERED: METHOTREXATE SODIUM 2.5 MG TABLET PO SCH (10:00)
[2017-06-16] MEDS: CHLORPHENIRAMINE MALEATE 4 MG TABLET PO SCH (10:38)
[2017-06-16] MEDS: BUPROPION HCL 75 MG TABLET PO SCH (10:38)
[2017-06-16] MEDS: LISINOPRIL 5 MG TABLET PO SCH (10:38)
[2017-06-16] MEDS: METOPROLOL SUCCINATE 25 MG TAB.SR.24H PO SCH (10:38)
[2017-06-16] MEDS: NICOTINE 14 MG/24 HR PATCH.TD24 TD SCH (10:38)
[2017-06-16] MEDS: FLUTICASONE NASAL SPRAY 50 MCG/SPRY 120 SPRAY/16 GM NASL SCH (10:38)
[2017-06-16] MEDS: FAMOTIDINE 20 MG TABLET PO SCH (10:38)
[2017-06-16 12:40] LABS: ANION GAP 10 (5-19); BLOOD UREA NITROGEN 24 mg/dL (7-20); CALCIUM 10.2 mg/dL (8.4-10.2); CARBON DIOXIDE 24 mmol/L (22-30); CHLORIDE 98 mmol/L (98-107); CREATININE RESULT 0.66 mg/dL (0.52-1.25); GLUCOSE 84 mg/dL (75-110); SODIUM 131.5 mmol/L (137-145)
[2017-06-16 13:07] VITALS: BP 131/92
--- NOTE | 2017-06-16 15:19 | PDOC PROGRESS REPORT ---
Subjective Progress Note for:: 06/16/17 Subjective:: Pt states that she is doing pretty well. Physical Exam Vital Signs: Temp Pulse Resp BP Pulse Ox 97.7 F 80 16 131/92 H 96 06/16/17 11:25 06/16/17 14:36 06/16/17 14:36 06/16/17 11:25 06/16/17 11:25 Intake & Output 06/15/17 06/16/17 06/17/17 06:59 06:59 06:59 Intake Total 1321 920 550 Output Total 700 1400 300 Balance 621 -480 250 Weight 84.5 kg 88.5 kg General appearance: PRESENT: no acute distress, well-developed, well-nourished Head exam: PRESENT: atraumatic, normocephalic Eye exam: PRESENT: conjunctiva pink, EOMI. ABSENT: scleral icterus Ear exam: PRESENT: normal external ear exam Mouth exam: PRESENT: moist, tongue midline Neck exam: ABSENT: carotid bruit, JVD, lymphadenopathy, thyromegaly Respiratory exam: PRESENT: other - + scant wheezing, No accessory muscle use. Cardiovascular exam: PRESENT: RRR. ABSENT: diastolic murmur, rubs, systolic murmur Pulses: PRESENT: normal dorsalis pedis pul Vascular exam: PRESENT: normal capillary refill GI/Abdominal exam: PRESENT: normal bowel sounds, soft. ABSENT: distended, guarding, mass, organolmegaly, rebound, tenderness Rectal exam: PRESENT: deferred Extremities exam: PRESENT: full ROM. ABSENT: calf tenderness, clubbing, pedal edema Neurological exam: PRESENT: alert, awake, oriented to person, oriented to place , oriented to time, oriented to situation, CN II-XII grossly intact. ABSENT: motor sensory deficit Psychiatric exam: PRESENT: appropriate affect, normal mood. ABSENT: homicidal ideation, suicidal ideation Skin exam: PRESENT: dry, intact, warm. ABSENT: cyanosis, rash Results Laboratory Results: 06/16/17 11:49 06/16/17 11:49 Sodium 131.5 L Potassium 5.0 Chloride 98 Carbon Dioxide 24 Anion Gap 10 BUN 24 H Creatinine 0.66 Est GFR ( Amer) > 60 Est GFR (Non-Af Amer) > 60 Glucose 84 Calcium 10.2 Impressions: Chest X-Ray 06/12/17 19:32 IMPRESSION: NO SIGNIFICANT RADIOGRAPHIC FINDING IN THE CHEST. Chest/Abdomen CTA 06/12/17 21:56 IMPRESSION: NORMAL CTA OF THE CHEST. NO PULMONARY EMBOLI. Assessment & Plan - Diagnosis (1) Bronchitis Is this a current diagnosis for this admission?: Yes Plan: Continue current treatment. (2) Allergic sinusitis Is this a current diagnosis for this admission?: Yes Plan: Continue current treatment. (3) COPD exacerbation Is this a current diagnosis for this admission?: Yes Plan: Continue current treatment. (4) Coronary artery disease Qualifiers: Coronary Disease-Associated Artery/Lesion type: [place] artery Associated angina: without angina Is this a current diagnosis for this admission?: Yes Plan: No changes. (5) Hyperkalemia Is this a current diagnosis for this admission?: Yes Plan: Resolved. (6) Rheumatoid arthritis Is this a current diagnosis for this admission?: Yes Plan: Continue Methotrexate. (7) Tobacco dependency Is this a current diagnosis for this admission?: Yes Plan: Encourage stop smoking. (8) Hypertension Is this a current diagnosis for this admission?: Yes Plan: Will add Amlodipine. - Time Time Spent with patient: 25-34 minutes Medications reviewed and adjusted accordingly: Yes Anticipated discharge: Home
[2017-06-17] MEDS ORDERED: METHOTREXATE SODIUM 2.5 MG TABLET PO SCH (10:00)
== END 2017-06-16 16:43 | disposition home or self-care (01) | DRG 192 ==
LOC: ER 18:03 → UNDOADMIN 06-13 00:04 → EH 06-13 00:04 → UNDOADMIN 06-13 00:26 → EH 06-13 01:40 → 4S 06-13 01:40
PROVIDERS: ADMIT Internal Medicine; ATTEND Internal Medicine
PROC: 3E0F73Z Introduction of Anti-inflammatory into Respiratory Tract, Via Natural or Artificial Opening (ICD-10-PCS; principal; 2017-06-13)
PROC: 3E0234Z Introduction of Serum, Toxoid and Vaccine into Muscle, Percutaneous Approach (ICD-10-PCS; 2017-06-16)
DX: J44.1 Chronic obstructive pulmonary disease with (acute) exacerbation (principal); I25.10 Atherosclerotic heart disease of native coronary artery without angina pectoris; J30.9 Allergic rhinitis, unspecified; M06.9 Rheumatoid arthritis, unspecified; F17.210 Nicotine dependence, cigarettes, uncomplicated; E87.5 Hyperkalemia; J44.0 Chronic obstructive pulmonary disease with (acute) lower respiratory infection; J20.8 Acute bronchitis due to other specified organisms; I25.2 Old myocardial infarction; Z23 Encounter for immunization; Z79.899 Other long term (current) drug therapy; Z90.710 Acquired absence of both cervix and uterus; Z79.82 Long term (current) use of aspirin; Z88.1 Allergy status to other antibiotic agents; Z95.5 Presence of coronary angioplasty implant and graft; Z83.6 Family history of other diseases of the respiratory system
CPT/HCPCS: 36415; 71020; 71275; 80048; 80053; 81001; 82550; 82553; 82803; 83605; 83690; 83735; 83880; 84484; 85025; 87040; 87070; 87205; 90686; 93005; 93010; 93306; 94640; 94667; 94668; 96365; 96375; 99285; J1644; J1940; J1956; J2920; J3490; J7512; J7620